=== PATIENT | female | born 1955 | race Caucasian/White ===

== ENCOUNTER 2017-04-09 16:33 | Observation (INO) ==
[2017-04-09] MEDS ORDERED: 0.9 % Sodium Chloride 1,000 ML ONE (17:54)
[2017-04-09] MEDS ORDERED: Naloxone 0.4 MG/ML INJ IVP PRN (21:41)
--- NOTE | 2017-04-09 21:57 | Internal Med History&Physical ---
Date of Encounter: 04/09/17 Time of Encounter: 21:51 Assessment and Plan (1) CVA (cerebral vascular accident) Current visit: Yes Status: Acute With Dysphasia. Likely embolic versus thrombotic. Risk factors: Pt has new onset A fib and has uncontrolled HTN and smoker. Will obtain MRI of the brain; echocardiogram, carotid Doppler, Neurology and speech therapy consult. Qualifiers: CVA mechanism: unspecified Qualified Code(s): I63.9 - Cerebral infarction, unspecified (2) Accelerated hypertension Current visit: Yes Status: Acute Start amlodipine and metoprolol (3) Atrial fibrillation with RVR Current visit: Yes Status: Acute Patient was started on diltiazem infusion in the emergency department. HR is improved - started on Metoprolol. HR is improved. Consider Cardiology consult (4) Elevated troponin I level Current visit: Yes Status: Acute Likely due to A Fib with RVR. Telemetry and trend troponin (5) Swelling of left lower extremity Current visit: Yes Status: Acute Will obtain venous doppler to exclude DVT (6) DVT prophylaxis Current visit: Yes Status: Acute SubQ Heparin Internal Medicine - H&P: HPI Chief complaint: Trouble speaking Admitted From: Hospital to Hospital Transfer Plans for Post Hospital Care: Home History of present illness: Ms. Ramos is a 62 year old female with h/o hypertension (apparently had adverse reaction to Lisinopril and did not go back to PCP to change antihypertensives), current smoker. Reports sudden onset difficulty finding words and speak out, started at about 7 PM on 04/07/17 (2 days ago) and continued to have the problem since then. She denies problem understanding or comprehending the speech or writing. She denies difficulty swallowing/choking, weakness of face, weakness of the extremities, sensory deficits, urinary or bowel incontinence. She reports frontal headache, which is different from her migraines. She denies blurry vision, chest pain, shortness of breath, cough, fever, chills, nausea, vomiting, abdominal pain, dysuria, hematuria, changes in bowel habits. She reports intermittent palpitations. She was evaluated in the emergency department at the [facility] and was noted to have atrial fibrillation with rapid response. She was started on diltiazem infusion and admitted to the hospitalist service at [facility], for further management. She had CT Head, which was negative for acute lesions. Past Med Surg Social Fam HX - Past Medical History Medical history: hypertension, migraine Psychiatric history: no psych history - Social History Smoking Status: Current every day smoker Smokeless Tobacco Status: No Alcohol use: occasionally Drug use: none - Additional Family History Additional family history: Pt denies family h/o CVA Internal Medicine - H&P: Meds Lactobacillus Combination No.8 [Adult Probiotic] 1 cap PO Q2D 04/09/17 [History] Multivitamin [Multivitamins] 1 each PO DAILY 04/09/17 [History] Allergies lisinopril Adverse Reaction (Verified 04/10/17 03:32) Dizziness, flushed feeling All Systems PM: A 10-system review of systems was performed and is negative for pertinent findings except as documented above in the HPI. - Constitutional Vitals: Temp Pulse Resp BP Pulse Ox 97.7 F 75 16 144/113 98 04/09/17 20:27 04/09/17 20:39 04/09/17 20:39 04/09/17 20:39 04/09/17 20:27 Exam: General: Not in acute distress at the time of my evaluation HEENT: Oral mucosa is moist. No conjunctival palor or scleral icterus Neck: No obvious neck swellings Lungs: Clear to auscultation Cardiac: Irregular rhythm. No significant murmurs Abdomen: Soft, non tender. Bowel sounds present Genitourinary: No rosas catheter Neurological: Alert and oriented. Pt has delay in answering the questions, but appropriate. No gross cranial nerve or limb weakness. Psych: Not aggressive or agitated Extremities: Mild leg edema of the left LE Skin: No generalized rash Internal Med - H&P Results - Labs CBC & Chem 7: 04/10/17 03:40 04/10/17 03:40 - EKG Data -: EKG Interpreted by Myself - EKG Data EKG comments: Atrial flutter/fibrillation with HR of 137. ST depression in V5 to V6. T-wave inversion in lead 3 and aVF. 04/10/17 04:22 - Impressions CT head reported no acute intracranial abnormality. CXR reported mild cardiomegaly and clear lungs.
[2017-04-09] MEDS: Nicotine 21 MG PATCH.TD24 TD SCH (22:26)
[2017-04-09] MEDS: *HR* Heparin 5,000 UNIT/ML VIAL SQ SCH (22:27)
[2017-04-10] MEDS: amLODIPine 5 MG TABLET PO SCH ×2 (00:45→08:17)
[2017-04-10 03:55] LABS: Hematocrit 51.9 % (35.3-44.9); Hemoglobin 17.3 g/dL (11.5-15.4); Mean Corpuscular HGB Conc 33.3 g/dL (31.6-35.5); Mean Corpuscular Hemoglobin 31.5 pg (28.0-33.3); Mean Corpuscular Volume 94.4 fL (83.0-100.0); Mean Platelet Volume 12.3 fL (9.4-12.4); Platelet Count 257 K/mcL (140-400)
[2017-04-10 04:09] LABS: Calcium 9.5 mg/dL (8.6-10.8); Magnesium 2.1 mg/dL (1.6-2.6); Potassium 3.9 mEq/L (3.5-4.5)
[2017-04-10 04:30] LABS: Thyroid Stimulating Hormone 1.491 mcIU/mL (0.350-4.840)
[2017-04-10] MEDS: *HR* Heparin 5,000 UNIT/ML VIAL SQ SCH (05:00)
--- NOTE | 2017-04-10 09:05 | Internal Med Progress Note ---
<Kip Silva - Last Filed: 04/10/17 17:41> Date of Encounter: 04/10/17 Time of Encounter: 14:00 - Assessment and plan (1) Atrial fibrillation with RVR Current Visit: Yes Status: Acute Assessment and plan: Case discussed with market manager Dr. 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 Given low EF avoid CCB. Start BB and CCB. start low dose diuretic. Chads-vasc 2 score 4, Case discussed with Dr. Vick, will stop heparin and start Xarelto. Patient may need future diagnostic catheterization per cardiology (2) CVA (cerebral vascular accident) Current Visit: Yes Status: Acute Assessment and plan: MRI shows acute CVA in left MCA region. Start Xarelto. Continue aspirin daily. Neurology following. Awaiting carotid ultrasound Qualifiers: CVA mechanism: unspecified Qualified Code(s): I63.9 - Cerebral infarction, unspecified (3) Elevated troponin I level Current Visit: Yes Status: Acute Assessment and plan: Likely related to decreased renal function versus CVA. Cardiology consulted. See above (4) Accelerated hypertension Current Visit: Yes Status: Acute (5) DVT prophylaxis Current Visit: Yes Status: Acute Assessment and plan: Started on Xarelto (6) Swelling of left lower extremity Current Visit: Yes Status: Acute Assessment and plan: Ultrasound negative for DVT. Continue to monitor - Subjective Interval history: Patient resting comfortably in bed. Patient has no new complaints. is at bedside. - Constitutional Vitals: Temp Pulse Resp BP Pulse Ox 97.9 F 72 18 141/111 93 04/10/17 06:45 04/10/17 06:45 04/10/17 06:45 04/10/17 06:45 04/10/17 06:45 - Head Head exam: Present: atraumatic, normocephalic - Eye Eye exam: Present: PERRL, conjuntiva pink, sclera anicteric Pupils: Present: PERRL - Neck Neck exam general surgery: Present: supple, trachea midline. Absent: lymphadenopathy - Respiratory Respiratory exam: Present: CTAB. Absent: accessory muscle use, rales, rhonchi, wheezes - Cardiovascular Cardiovascular exam: Present: RRR, +S1, +S2. Absent: diastolic murmur, gallop, rubs, systolic murmur - GI/Abdominal GI/Abdominal exam: Present: normal bowel sounds, soft, no peritoneal signs. Absent: distended, tenderness - Extremities Exam Extremities exam: Present: warm, radial pulses palpable and symetrical. Absent : calf tenderness, cyanotic, pedal edema - Neurological Exam Neurological exam: Present: alert, CN II-XII intact, oriented X3, no focal deficits, strengths equal and symetr throughout. Absent: altered, motor sensory deficit, pronater drift, facial droop, speech deficit - Psychiatric Psychiatric exam: Present: normal affect, normal mood - Skin Skin exam: Present: dry, intact Internal Medicine: Result - Labs CBC & Chem 7: 04/10/17 14:12 04/10/17 03:40 Labs: Short CBC 04/10/17 Range/Units 03:40 WBC 9.3 (4.3-11.1) K/mcL Hgb 17.3 H (11.5-15.4) g/dL Hct 51.9 H (35.3-44.9) % Plt Count 257 (140-400) K/mcL BMP 04/10/17 03:40 Sodium 139 Potassium 3.9 Chloride 107 Carbon Dioxide 25 BUN 18 Creatinine 1.20 H Glucose 93 Calcium 9.5 Cardiac Enzymes 04/09/17 04/10/17 Range/Units 22:06 03:40 Troponin I 0.05 H* 0.07 H* (0-0.03) ng/mL Consult Discharge Plan - Plan Referrals: NO,PCP [Primary Care Provider] - <Samy Clay P - Last Filed: 04/10/17 17:52> Date of Encounter: 04/10/17 - Constitutional Vitals: Temp Pulse Resp BP Pulse Ox 97.7 F 98 18 122/107 97 04/10/17 15:26 04/10/17 15:26 04/10/17 15:26 04/10/17 15:26 04/10/17 15:26 Internal Medicine: Result - Labs CBC & Chem 7: 04/10/17 14:12 04/10/17 03:40 Labs: Short CBC 04/10/17 04/10/17 Range/Units 03:40 14:12 WBC 9.3 9.2 (4.3-11.1) K/mcL Hgb 17.3 H 17.3 H (11.5-15.4) g/dL Hct 51.9 H 52.2 H (35.3-44.9) % Plt Count 257 260 (140-400) K/mcL BMP 04/10/17 03:40 Sodium 139 Potassium 3.9 Chloride 107 Carbon Dioxide 25 BUN 18 Creatinine 1.20 H Glucose 93 Calcium 9.5 Cardiac Enzymes 04/09/17 04/10/17 Range/Units 22:06 03:40 Troponin I 0.05 H* 0.07 H* (0-0.03) ng/mL - ABG Interpretation ABG results: PT/INR, D-dimer PT 13.1 Seconds (9.4-12.1) H 04/10/17 14:12 - Impressions Impressions Brain MRI 04/09/17 21:45 IMPRESSION: There are approximately 7 punctate areas of acute infarct involving the left frontal lobe in the left middle cerebral artery territory. Minimal chronic small vessel ischemic changes. D/ / 04/10/2017 10:18:53 Magaly Chan MD / Gabriella Higginbotham Interpreting Provider: Magaly Chan MD - Attending Attestation I examined this patient and my medical decision-making was reviewed with the PROFESSOR OF BIOLOGICAL SCIENCES/PA/Advanced Practice Nurse/Resident Physician. I agree with the documented findings, disposition and treatment plan as described except to the extent set forth below. Neurology/cardiology evaluation appreciated
[2017-04-10] MEDS: Nicotine 21 MG PATCH.TD24 TD SCH (10:38)
[2017-04-10] MEDS ORDERED: *HR* Heparin 5,000 UNIT/ML VIAL IVP ONE (14:02)
[2017-04-10] MEDS ORDERED: *HR* Heparin 5,000 UNIT/ML VIAL IVP PRN ×2 (14:02)
[2017-04-10] MEDS ORDERED: Heparin 25,000 UNIT/500 ML D5W 25,000 UNIT/500 ML MLS IVC SCH (14:15)
[2017-04-10 14:26] LABS: Hematocrit 52.2 % (35.3-44.9); Hemoglobin 17.3 g/dL (11.5-15.4); Immature Platelets 11.1 % (1.1-6.1); Mean Corpuscular HGB Conc 33.1 g/dL (31.6-35.5); Mean Corpuscular Hemoglobin 30.6 pg (28.0-33.3); Mean Corpuscular Volume 92.4 fL (83.0-100.0); Mean Platelet Volume 12.1 fL (9.4-12.4); Red Blood Count 5.65 M/mcL (3.82-4.97)
[2017-04-10 14:30] LABS: INR 1.2; Prothrombin Time 13.1 Seconds (9.4-12.1)
[2017-04-10 14:32] LABS: Activated Partial Thrombo Time 34.6 Seconds (26.0-36.0)
--- NOTE | 2017-04-10 15:28 | Cardiology Consult Note ---
Date of Encounter: 04/10/17 Time of Encounter: 15:22 Assessment and Plan (1) Atrial fibrillation with RVR Current Visit: Yes Status: Acute Newly diagnosed AF, duration unknown. Patient denies palpitations, unusual dyspnea/fatigue, etc. Acute CVA - Multiple punctate locations, suggestive of cardioemoblic source. CHADS-VASc (HTN, FM, CVA) 4. Recommend start anti-coagulation when okay with neurology. We discussed coumadin versus novel agents. She would prefer novel agent. Start Xarelto 20 mg daily when okay with neurology. Recommend rate control given recent CVA. Rhythm control could be considered in future after adequate period of time on anticoagulation. Given concomitant CMP, recommend Toprol XL. Followup with cardiology as outpatient. (2) CVA (cerebral vascular accident) Current Visit: Yes Status: Acute Qualifiers: CVA mechanism: unspecified Qualified Code(s): I63.9 - Cerebral infarction, unspecified (3) Accelerated hypertension Current Visit: Yes Status: Acute Given low EF, should avoid CCB. Stop Norvasc. Start BB and ARB. Start low dose diuretic. Monitor BP and titrate as tolerated. If needed, hydralazine/nitrates could be used in future. Low sodium diet. Slow reduce BP. (4) Cardiomyopathy Current Visit: Yes Status: Acute Newly diagnosed CMP, global, LVEF 30%. Tachycardia/AF with RVR upon presentation. ? tachycardia induced. Obstructive CAD cannot be excluded, but no recent chest pain reported. LHC would be helpful, but CVA is relative contraindication. Recommend treatment of CVA/AF for now. Repeat echocardiogram after period of rate control (up to 3 months). If EF remains reduced, then consider diagnostic LHC after recovery from CVA. For now, recommend BB/ARB (ACEi allergy). Start low dose diuretic for BP and low EF. CHF education provided. Ideally, aspirin 81 mg daily should be considered. Qualifiers: Cardiomyopathy type: unspecified Qualified Code(s): I42.9 - Cardiomyopathy , unspecified Discussion w patient/family: The assessment and plan as outlined above was discussed with the patient and/or family members who expressed understanding and agreement. All questions were answered. Thank you for involving us in the care of your patient. Please call with any questions. History of Present Illness Consult date: 04/10/17 Requesting physician: Kip Silva Consult reason: AF, CMP Chief complaint: Speech aphasia History of present illness: Ms. Ramos is a 62 year old female who presented to [place] [facility] with complaint of expressive aphasia. Symptoms began Monday night, but did not go to ER until Monday afternoon. She does not have a PCP. Seen in urgent care in October for dx of bronchitis. Denies palpitations, lightheadedness, near syncope, or syncope. No chest pain or discomfort. She does report swelling in her hand. Known PMH - tobacco use, possible HTN. She does not take any medications. ECG - AF with RVR in ER. Now rate controlled. MRI - Multiple punctate infarcts. TTE - LVEF 30%. Global. Moderate MR. Past Med Surg Social Fam HX - Past Medical History Medical history: hypertension, migraine Psychiatric history: no psych history - Social History Smoking Status: Current every day smoker Smokeless Tobacco Status: No Alcohol use: occasionally Drug use: none Medications and Allergies Lactobacillus Combination No.8 [Adult Probiotic] 1 cap PO Q48H 04/09/17 [History ] Multivitamin [Multivitamins] 1 tab PO DAILY 04/09/17 [History] Allergies lisinopril Adverse Reaction (Verified 04/10/17 03:32) Dizziness, flushed feeling All Systems Review: A 10-system review of systems was performed and is negative for pertinent findings except as documented above in the HPI. - Neurological Neurological: abnormal speech Physical Examination General: Conversant, No Apparent Distress HEENT: Atraumatic, Normocephaly, Mucus Membranes Moist Neck: No JVD Cardiac: Other (Irregular rate and rhythm, mild murmur) Lungs: Normal Breath Sounds, No Wheeze, Rales, Rhonchi Neuro: Alert and responsive, No focal deficits noted Abdomen: Soft, Non-Tender Skin: No rashes noted on visualized skin Musculoskeletal: No Chest Wall Tenderness Extremities: No Clubbing, No Cyanosis, Other (Mild edema of hands) Results 04/10/17 14:12 04/10/17 03:40 Lab Results 04/09/17 04/10/17 04/10/17 22:06 03:40 03:40 WBC 9.3 Hgb 17.3 H Hct 51.9 H Plt Count 257 INR APTT Sodium Potassium Chloride Carbon Dioxide BUN Creatinine Glucose Calcium Magnesium Troponin I 0.05 H* 0.07 H* TSH 0704/10/17 04/10/17 03:40 14:12 14:12 WBC 9.2 Hgb 17.3 H Hct 52.2 H Plt Count 260 INR 1.2 APTT 34.6 Sodium 139 Potassium 3.9 Chloride 107 Carbon Dioxide 25 BUN 18 Creatinine 1.20 H Glucose 93 Calcium 9.5 Magnesium 2.1 Troponin I TSH 1.491 - Imaging and Cardiology Echo: report reviewed - EKG Interpretation EKG results cardiology: personally reviewed Consult Discharge Plan - Plan Referrals: NO,PCP [Primary Care Provider] -
[2017-04-10] MEDS ORDERED: Furosemide 20 MG/2 ML VIAL IVP ONE (15:42)
--- NOTE | 2017-04-10 15:47 | Neurology - Consult Note ---
Date of Encounter: 04/10/17 Time of Encounter: 15:43 Assessment and Plan (1) CVA (cerebral vascular accident) Current Visit: Yes Status: Acute This patient has experienced left hemispheric cerebral infarct. There are multiple scattered small infarcts in the territory of the left middle cerebral artery. She has new onset A. fib with severe left ventricular systolic dysfunction with an ejection fraction of 30%. I agree with anticoagulation in this patient. Her neurologic examination at this point is back to normal. Cardiology wishes to use Xarelto which is fine. She may need some speech therapy after discharge. Certainly hypertension remains an issue and will need to be managed aggressively. Stroke protocol orders should be implemented. I also recommend carotid Doppler study prior to discharge. I will reevaluate her at your request. Qualifiers: CVA mechanism: unspecified Qualified Code(s): I63.9 - Cerebral infarction, unspecified History of Present Illness HPI: Ms. Ramos is a 62 year old female seen for neurologic consultation due to acute cardioembolic left frontal infarct. Patient states that she began having difficulty finding words while at home at about 7 PM on 04/07/2017. She continued to have difficulty with speaking since then however it began to resolve over the last day or so. She denies any other difficulties such as headache or difficulty swallowing she denied any numbness tingling or weakness of the face arms or legs. She denied any visual changes. She only had some difficulty with expressive aphasia. At this time the deficits seem to have largely resolved. MRI scan of the brain however does reveal an acute infarct in the left frontal region in the territory of the left middle cerebral artery. There are several small scattered infarcts throughout the left MCA territory. She is also had an echocardiogram revealing a left ventricular ejection fraction of 30% with global hypokinesis being present. She is definitely improving at this time. Apparently she was just diagnosed with new-onset atrial fibrillation at the [facility]. Carotid duplex Doppler study is yet pending. She is currently on heparin. Past Med Surg Social Fam HX - Past Medical History Medical history: hypertension, migraine Psychiatric history: no psych history - Social History Smoking Status: Current every day smoker Smokeless Tobacco Status: No Alcohol use: occasionally Drug use: none Medications and Allergies Lactobacillus Combination No.8 [Adult Probiotic] 1 cap PO Q48H 04/09/17 [History ] Multivitamin [Multivitamins] 1 tab PO DAILY 04/09/17 [History] Allergies lisinopril Adverse Reaction (Verified 04/10/17 03:32) Dizziness, flushed feeling All Systems: A 10-system review of systems was performed and is negative for pertinent findings except as documented above in the HPI. Review of Systems: 10 point review of systems is consistent with a history of present illness and otherwise negative. Physical Examination - Vital Signs Vital Signs: Initial Vital Signs Temp Pulse Resp BP Pulse Ox 97.7 F 85 16 161/111 97 04/09/17 17:55 04/09/17 17:55 04/09/17 17:55 04/09/17 17:55 04/09/17 17:55 - Neurologic Detailed motor examination: full strength in all major muscle groups Motor examination - right side: 5/5: deltoids, biceps, triceps, wrist flexion, wrist extension, junior financial analyst, hip flexors, tibialis Anterior, quadriceps, toe extension (EHL), plantarflexion Motor examination - left side: 5/5: deltoids, biceps, triceps, wrist flexion, wrist extension, hip flexors, junior financial analyst, quadriceps, tibialis Anterior, toe extension (EHL), plantarflexion Reflexes: Biceps: 2+ (Symmetrically), Triceps: 2+ ("), Brachioradialis: 2+ ("), Patella: 2+ ("), Achilles: 2+ (") Mental Status Examination: awake, alert, oriented to person, oriented to place, oriented to time, follows commands appropriately, answers questions appropriately, no agnosia, no aphasia, no aproxia Cranial nerve examination: PERRL, EOMI, visual jaimes intact, corneal reflexes brisk symmetrically, sensory to face intact, mastication intact, no facial asymmetry is present, no dysarthria, hearing is intact symmetrically, soft palate elevates bilaterally upon phonation, gag reflex intact, flexes SCM and trapezius muscles symmetrically with full power, tongue protrudes midline, no atrophy or facial fasiculations present Cerebellar examination: no dysmetria, performs finger to nose and heel to jolly symmetrically without ataxia, no gait ataxia, no truncal ataxia, no difficulty with rapid alternating movements Results - Laboratory Findings CBC and BMP: 04/10/17 14:12 04/10/17 03:40 Abnormal lab findings: Abnormal lab results RBC 5.65 M/mcL (3.82-4.97) H 04/10/17 14:12 Hgb 17.3 g/dL (11.5-15.4) H 04/10/17 14:12 Hct 52.2 % (35.3-44.9) H 04/10/17 14:12 Immature Plt Fraction 11.1 % (1.1-6.1) H 04/10/17 14:12 PT 13.1 Seconds (9.4-12.1) H 04/10/17 14:12 Creatinine 1.20 mg/dL (0.57-1.11) H 04/10/17 03:40 Est GFR ( Amer) 55 (> 60) L 04/10/17 03:40 Est GFR (Non-Af Amer) 46 (> 60) L 04/10/17 03:40 Troponin I 0.07 ng/mL (0-0.03) H* 04/10/17 03:40 LDL Cholesterol, Calc 114 mg/dL (0-99) H 04/10/17 03:40 Consult Discharge Plan - Plan Referrals: NO,PCP [Primary Care Provider] -
[2017-04-10] MEDS: *HR* Rivaroxaban 10 MG TABLET PO SCH (16:21)
--- NOTE | 2017-04-10 18:12 | Venous Imaging Report ---
LE Venous Duplex Patient Name:Jase Ramos Order Number:[id number] Procedure Date:04/10/2017 Date:6Age:62 yrs Gender:Female Location:[facility] Room #: 2NE28 Welcome Wagon Host/Hostess:Lauren Seaman RDCS Referring MD:Grant Whiteside MD Reading MD:Ty Whitman MD Primary Indications:Swelling of limb Secondary Indications: Impressions: Normal left lower extremity deep and superficial venous exam. Recommendations: After imaging the patient returned to their room. Preliminary given to pt RN via phone. Findings Venous Duplex Results: Left: Venous imaging of the lower extremity reveals full patency and normal vessel compressibility of the left distal iliac, left common femoral, left superficial femoral, left popliteal, left posterior tibial, left peroneal, left great saphenous and left lesser saphenous. Doppler signals in the evaluated veins were normal. Prior Study: No prior study available for comparison. Lower Extremity Venous Duplex Side Vein Compress Spontaneous Flow Augment Diameter (cm) Depth (cm) Left Distal Iliac Normal Yes Phasic Yes Left Common Femoral Normal Yes Phasic Yes Left Superficial Femoral Normal Yes Phasic Yes Left Popliteal Normal Yes Phasic Yes Left Posterior Tibial Normal Yes Phasic Yes Left Peroneal Normal Yes Phasic Yes Left Great Saphenous Normal Yes Phasic Yes Left Lesser Saphenous Normal Yes Phasic Yes Updated by Ty Whitman MD on 04/10/2017 6:07:36 PM electronically signed on 04/10/2017 6:07:47 PM with status of Final
[2017-04-11 06:18] LABS: Basophils # 0.1 K/mcL (0.0-0.2); Basophils % 1.5 %; Eosinophils # 0.3 K/mcL (0.0-0.6); Hemoglobin 18.2 g/dL (11.5-15.4); Immature Granulocytes % 0.2 % (0-4); Lymphocytes # 2.4 K/mcL (0.6-4.6); Lymphocytes % 25.6 %; Mean Corpuscular HGB Conc 32.7 g/dL (31.6-35.5); Mean Corpuscular Hemoglobin 30.6 pg (28.0-33.3); Mean Corpuscular Volume 93.6 fL (83.0-100.0); Mean Platelet Volume 12.3 fL (9.4-12.4); Monocytes % 10.4 %; Neutrophils # 5.6 K/mcL (1.6-8.9); Platelet Count 278 K/mcL (140-400); Red Blood Count 5.95 M/mcL (3.82-4.97); Segmented Neutrophils % 59.3 %
[2017-04-11 06:19] LABS: Hematocrit 55.7 % (35.3-44.9)
[2017-04-11 06:33] LABS: Alanine Aminotransferase 35 Units/L (0-55); Albumin 3.9 g/dL (3.5-5.0); Albumin/Globulin Ratio 1.1 (1.1-2.2); Alkaline Phosphatase 88 Units/L (38-126); Aspartate Amino Transferase 31 Units/L (5-34); BUN/Creatinine Ratio 20 (6-26); Bilirubin,Total 1.4 mg/dL (0.2-1.2); Blood Urea Nitrogen 21 mg/dL (7-20); Calcium 9.9 mg/dL (8.6-10.8); Carbon Dioxide 26 mEq/L (19-29); Chloride 107 mEq/L (98-109); Globulin 3.4 g/dL (2.4-3.5); Glucose 87 mg/dL (70-99); Osmolality,Calculated 294 (280-300); Sodium 141 mEq/L (136-145); Total Protein 7.3 g/dL (6.0-8.3); eGFR For African Americans > 60 (> 60); eGFR For Non-African Americans 54 (> 60)
[2017-04-11 06:49] VITALS: BP 143/111
[2017-04-11 06:54] LABS: Potassium 3.7 mEq/L (3.5-4.5)
[2017-04-11] MEDS: Nicotine 21 MG PATCH.TD24 TD SCH (08:34)
[2017-04-11] MEDS: *HR* Rivaroxaban 10 MG TABLET PO SCH (08:36)
[2017-04-11] MEDS ORDERED: Furosemide 20 MG TABLET PO SCH (09:00)
[2017-04-11] MEDS ORDERED: Metoprolol XL (24 HR) Succ 25 MG TAB.ER.24H PO SCH (09:00)
--- NOTE | 2017-04-11 10:24 | Discharge Summary ---
Date of Encounter: 04/11/17 Time of Encounter: 09:00 - Discharge Diagnosis (1) CVA (cerebral vascular accident) Priority: Primary Status: Acute Qualifiers: CVA mechanism: embolism Precerebral and cerebral artery: middle cerebral artery Laterality of affected vessel: left Qualified Code(s): I63.412 - Cerebral infarction due to embolism of left middle cerebral artery (2) Accelerated hypertension Priority: Secondary Status: Acute (3) Atrial fibrillation with RVR Priority: Secondary Status: Acute (4) Elevated troponin I level Priority: Secondary Status: Acute (5) Swelling of left lower extremity Priority: Secondary Status: Acute Comments: Most likely related to cardiomyopathy. Negative venous Doppler. (6) Cardiomyopathy Priority: Secondary Status: Acute Qualifiers: Cardiomyopathy type: unspecified Qualified Code(s): I42.9 - Cardiomyopathy , unspecified - Discharge Medications Prescriptions: Aspirin Enteric Coated [Aspirin EC] 81 mg PO DAILY #30 tablet. Furosemide [Lasix] 20 mg PO DAILY #30 tablet Losartan [Cozaar] 25 mg PO DAILY #30 tablet Metoprolol XL (24 HR) Succ [Toprol Xl] 25 mg PO DAILY #30 tab.er.24h Rivaroxaban [Xarelto] 20 mg PO DAILY #30 tablet Simvastatin [Zocor] 40 mg PO HS #30 tablet Home Medications: Lactobacillus Combination No.8 [Adult Probiotic] 1 cap PO Q48H 04/09/17 [History ] Multivitamin [Multivitamins] 1 tab PO DAILY 04/09/17 [History] Aspirin Enteric Coated [Aspirin EC] 81 mg PO DAILY #30 tablet. 04/11/17 [Rx] Furosemide [Lasix] 20 mg PO DAILY #30 tablet 04/11/17 [Rx] Losartan [Cozaar] 25 mg PO DAILY #30 tablet 04/11/17 [Rx] Metoprolol XL (24 HR) Succ [Toprol Xl] 25 mg PO DAILY #30 tab.er.24h 04/11/17 [ Rx] Rivaroxaban [Xarelto] 20 mg PO DAILY #30 tablet 04/11/17 [Rx] Simvastatin [Zocor] 40 mg PO HS #30 tablet 04/11/17 [Rx] Allergies/Adverse Reactions: Allergies lisinopril Adverse Reaction (Verified 04/10/17 03:32) Dizziness, flushed feeling Procedures/tests Complete & Pending: Procedures Performed prior 72 hours Category Date Time Status head/brain wo con [MR] Routine MRI 04/09/17 21:45 Draft EV carotid duplex imaging BI Routine Y 04/10/17 16:54 Completed EV echocardiogram Routine Y 04/10/17 10:12 Completed Venous Doppler [EV venous imaging LE LT] Routine Y 04/10/17 04:12 Completed Date of admission: 04/09/17 17:26 Primary care physician: PCP NO Consults: 04/09/17 21:45 Consult to Neurology [CONS] Routine Consulting Provider: [facility] Reason for Consult: CVA with Aphasia / dysphasia Call Completed: No Consult to Speech Therapy [CONS] Routine Comment: Evaluate, develop and implement POC Reason for Consult: Dysphasia / Aphasia Call Completed: No 04/10/17 14:01 Consult to Cardiology [CONS] Routine Comment: Consulting Provider: [facility] Reason for Consult: New onset atrial fibrillation and new onset cardiomyopathy with a Ef of 30%. Patient was discussed by Dr. Silva with cardiology. Call Completed: Yes Discharging clinician: Harry Sam Anticipated date of discharge: 04/11/17 - Patient Status Disposition: Home, Self-Care Condition: Good Functional capacity at discharge: independent ambulation Overall status at discharge: patient is progressing back to baseline - Discharge Instructions Instructions: Rivaroxaban (By mouth), Atrial Fibrillation (DC), Ischemic Stroke (DC), Ischemic Stroke (GEN), Chronic Hypertension (DC) Follow Up With: NO,PCP [Primary Care Provider] - Eris Ovalle DO [Partnered Physician] - (In 1-2 weeks) Additional Instructions: As tolerated. Follow-up with neurology in 1-2 weeks regarding acute stroke - Diet and Activity Activity: increase activity as tolerated Diet: low fat, low cholesterol, low salt diet Hospital course: Ms. Ramos is a 62 year old female patient with history of essential hypertension, migraine presented to the ER with complaints of difficulty finding words and speaking that began on 04/07/17. She was evaluated in the ED and was noted to have atrial fibrillation with rapid ventricular response. She was immediately transferred over here for hospitalization for TIA and A. fib with RVR. She was started on diltiazem intravenously. MRI of her brain done here showed multiple punctate areas of acute infarct involving the left frontal lobe and the left middle cerebral artery to artery. Patient was diagnosed with acute CVA and neurology was consulted. Cardiology was also consulted for JalynBhavya meza. Patient had a 2-D echocardiogram which showed an EF of 30%. She was diagnosed with cardiomyopathy. While it could be tachycardia related, she will need workup to rule out ischemic causes. Given her acute stroke, unable to do cardiac catheterization at this time. She has been started on medications to treat cardiomyopathy. Her atrial fibrillation has now been rate controlled. She has also been placed on anticoagulation with Xarelto. Her speech difficulty has improved and she is stable for discharge. She will continue to receive outpatient speech therapy. She will follow up with neurology and cardiology as outpatient for further management. Her blood pressure was elevated on presentation here and now it is better controlled with losartan and metoprolol. - Time Spent with Patient Total time spent providing and/or coordinating discharge services: Greater than 30 minutes (40 min) - Constitutional Vitals: Temp Pulse Resp BP Pulse Ox 98.1 F 79 16 143/111 98 04/11/17 06:45 04/11/17 06:45 04/11/17 06:45 04/11/17 06:45 04/11/17 06:45 General appearance: Present: cooperative, A&O X 3, answers questions appropriately - Respiratory Respiratory exam: Present: CTAB. Absent: accessory muscle use, rales, rhonchi, wheezes - Cardiovascular Cardiovascular exam: Present: RRR, +S1, +S2. Absent: diastolic murmur, gallop, rubs, systolic murmur - GI/Abdominal GI/Abdominal exam: Present: normal bowel sounds, soft, no peritoneal signs. Absent: distended, tenderness - Extremities Exam Extremities exam: Present: warm, radial pulses palpable and symetrical. Absent : calf tenderness, cyanotic, pedal edema - Neurological Exam Neurological exam: Present: alert, CN II-XII intact, oriented X3, no focal deficits. Absent: facial droop, speech deficit - Skin Skin exam: Present: dry, intact
--- NOTE | 2017-04-12 07:23 | Carotid Imaging Report ---
Carotid Duplex Patient Name:Jase Ramos Order Number:[id number] Procedure Date:04/10/2017 Date:1955ge:62 yrs Gender:Female Lt BP:122 / 107 mmHg Rt.BP:138 / 99 mmHgHeart Rate: Location:[facility] Room #: 2NE28 Chief Talent Officer:Deysi Nunn Referring MD:Kip Silva valet cashier:None Reading MD:Ty Whitman MD Primary Indications:acute CVA Risk Factors Yes/No Hypertension Yes Smoking Current Yes Impressions: The bilateral carotid arteries are normal throughout. Recommendations: After imaging the patient returned to their room. Findings Carotid Duplex: Doshi scale imaging combined with Doppler flow analysis suggests normal findings bilaterally. Right: The right proximal common carotid artery has a PSV of 79 cm/s and a EDV of 20 cm/s. The right mid common carotid artery has a PSV of 79 cm/s and a EDV of 23 cm/s. The right distal common carotid artery has a PSV of 91 cm/s and a EDV of 27 cm/s. The right bifurcation has a PSV of 57 cm/s and a EDV of 15 cm/s. The right proximal internal carotid artery has a PSV of 64 cm/s and a EDV of 26 cm/s. The right mid internal carotid artery has a PSV of 55 cm/s and a EDV of 26 cm/s. The right distal internal carotid artery has a PSV of 84 cm/s and a EDV of 34 cm/s. The right eca has a PSV of 95 cm/s and a EDV of 23 cm/s. The right vertebral artery has a PSV of 37 cm/s and a EDV of 13 cm/s. Left: The left proximal common carotid artery has a PSV of 80 cm/s and a EDV of 21 cm/s. The left mid common carotid artery has a PSV of 107 cm/s and a EDV of 29 cm/s. The left distal common carotid artery has a PSV of 85 cm/s and a EDV of 26 cm/s. The left bifurcation has a PSV of 70 cm/s and a EDV of 21 cm/s. The left proximal internal carotid artery has a PSV of 62 cm/s and a EDV of 27 cm/s. The left mid internal carotid artery has a PSV of 59 cm/s and a EDV of 25 cm/s. The left distal internal carotid artery has a PSV of 82 cm/s and a EDV of 35 cm/s. The left eca has a PSV of 83 cm/s and a EDV of 14 cm/s. The left vertebral artery has a PSV of 16 cm/s and a EDV of 6 cm/s. Prior Study: No prior study available for comparison. Carotid Results Right PSV EDV Assessment Proximal CCA 79 20 Normal Mid CCA 79 23 Normal Distal CCA 91 27 Normal Bifurcation 57 15 Normal Proximal ICA 64 26 Normal Mid ICA 55 26 Normal Distal ICA 84 34 Normal ECA 95 23 Normal Vertebral Artery 37 13 Normal Left PSV EDV Assessment Proximal CCA 80 21 Normal Mid CCA 107 29 Normal Distal CCA 85 26 Normal Bifurcation 70 21 Normal Proximal ICA 62 27 Normal Mid ICA 59 25 Normal Distal ICA 82 35 Normal ECA 83 14 Normal Vertebral Artery 16 6 Normal Ratio's Right ICA/CCA Ratio: 1.06 ICA/CCA Values: 84/79 Left ICA/CCA Ratio: 0.77 ICA/CCA Values: 82/107 Updated by Ty Whitman MD on 04/12/2017 7:18:32 AM electronically signed on 04/12/2017 7:18:50 AM with status of Final
== END 2017-04-11 12:00 | disposition home or self-care (01) ==
LOC: 2NENU → SUATTDRO 17:26 → 2NENU 17:37
PROVIDERS: ADMIT Internal Medicine; ATTEND Internal Medicine